=== PATIENT | male | born 1960 | race American Indian/Alaskan Native ===

== ENCOUNTER 2017-01-21 06:07 | Day surgery (SDC) | payer OTHER ==
[2017-01-21] MEDS ORDERED: NACL 0.9% 500 ML 500 ML IV SCH (07:00)
[2017-01-21 07:02] LABS: Basophils % (Auto) 1.2 % (0.0-1.8); Eosinophils % (Auto) 1.8 % (0.0-4.3); Hematocrit 40.2 % (35.5-45.6); Hemoglobin 12.8 gm/dl (11.8-15.2); Mean Corpuscular HGB Conc 32 % (32-34); Mean Corpuscular Hemoglobin 27 pg (28-32); Mean Corpuscular Volume 85 fl (84-94); Platelet Count 162 K/mm3 (140-440); Red Blood Count 4.75 M/mm3 (3.65-5.03); Red Cell Distribution Width 14.1 % (13.2-15.2); White Blood Count 5.4 K/mm3 (4.5-11.0)
[2017-01-21 07:11] LABS: INR 1.07 (0.87-1.13)
[2017-01-21 07:27] LABS: Blood Urea Nitrogen 12 mg/dL (9-20); Carbon Dioxide 26 mmol/L (22-30); Glucose 94 mg/dL (75-100)
[2017-01-21 07:28] LABS: Anion Gap 16 mmol/L; Chloride 102.5 mmol/L (98-107); Potassium 3.7 mmol/L (3.6-5.0); Sodium 141 mmol/L (137-145)
[2017-01-21] MEDS ORDERED: HEPARIN 10,000 UNITS/10 ML ONE (08:26)
[2017-01-21] MEDS ORDERED: XYLOCAINE 2% INFILTRATI ONE (08:26)
[2017-01-21] MEDS ORDERED: HEPARIN/NS 5000 UNIT/500ML(CATH LAB) 1,000 ML IR ONE (08:26)
[2017-01-21] MEDS ORDERED: CALAN ONE (08:26)
[2017-01-21] MEDS ORDERED: NITROGLYCERIN SYRINGE 3 ML ONE (08:27)
[2017-01-21] MEDS ORDERED: VERSED ONE (08:27)
[2017-01-21] MEDS ORDERED: SUBLIMAZE ONE (08:27)
--- NOTE | 2017-01-21 09:40 | Short Stay Summary ---
Short Stay Documentation Date of service: 01/21/17 - History H&P: obtained from office - Allergies and Medications Current Medications: Allergies No Known Allergies Allergy (Verified 01/21/17 06:29) Home Medications Medication Instructions Recorded Confirmed Last Taken Type Aspirin EC [Aspirin Enteric Coated 81 mg PO DAILY 01/21/17 01/21/17 01/21/17 History TAB] Diovan Hct 160-25 mg 1 tab PO DAILY 01/21/17 01/21/17 01/21/17 History Nebivolol (Nf) [Bystolic (Nf)] 5 mg PO DAILY 01/21/17 01/21/17 01/21/17 History 5mg Active Medications Sodium Chloride (Nacl 0.9% 500 Ml) 500 mls @ 50 mls/hr IV DIRECT CASTILLO Stop: 01/21/17 16:59 Last Admin: 01/21/17 06:59 Dose: 50 mls/hr - Physical exam General appearance: no acute distress Integumentary: no rash HEENT: Atraumatic Lungs: Clear to auscultation Breasts: deferred Heart: Regular rate Gastrointestinal: normal Male Genitourinary: deferred Female Genitourinary: deferred Rectal Exam: deferred Extremities: no ischemia Neurological: Normal gait - Brief post op/procedure progress note Date of procedure: 01/21/17 Pre-op diagnosis: Atypical chest pain Post-op diagnosis: same Procedure: LHC, LV gram, aortogram Anesthesia: MAC Findings: Normal coronaries, moderate AR, normal LVEF Surgeon: KENIA PABLO Estimated blood loss: none Pathology: none Condition: stable - Hospital course Hospital course: Uneventful - Disposition Condition at discharge: Good Disposition: DISCHARGED TO HOME OR SELFCARE Short Stay Discharge Plan Activity: advance as tolerated Weight Bearing Status: Weight Bear as Tolerated Diet: low salt Follow up with: JERROD BRIAN MD [Primary Care Provider] - 7 Days
--- NOTE | 2017-01-21 10:51 | Cardiac Catherization Report ---
LEFT HEART CATHETERIZATION INDICATION: Atypical chest pain, persistent. ORDERING PHYSICIAN: Bree Shah MD PROCEDURES PERFORMED: 1. Selective left and right coronary angiography. 2. Left ventriculography. 3. Aortic root angiography. DESCRIPTION OF PROCEDURE: 1. After obtaining written consent, the patient was draped using sterile technique. 2. A 2% lidocaine was injected into the right wrist. 3. A 5-[place] vascular sheath was inserted into the right radial artery. 4. A 5-[place]aur[place] JL3.5 catheter was used to selectively engage the left coronary artery. 5. A 5-[place] JR4 catheter was used to selectively engage the right coronary artery. 6. A 5-[place]aur[place] pigtail catheter was used to perform the left ventriculogram. A 5-[place]aur[place] pigtail catheter was used to perform an aortic root angiogram. 7. No complications occurred during the procedure. 8. Hemostasis was achieved at the end of the procedure using manual pressure. SPECIMEN REMOVED: None. ESTIMATED BLOOD LOSS: Minimal. FINDINGS: HEMODYNAMICS: Aortic pressure is 145/70, left ventricular systolic pressure is 149 mmHg. Left ventricular end diastolic pressure is 15 mmHg. There was no significant gradient noted across the left ventricular outflow tract. CARDIAC STRUCTURES: 1. The left ventricle is normal in size and systolic function with the left ventricular ejection fraction estimated at 60%. 2. The proximal aortic root measures 39.1 mm in diameter, sinotubular junction measured at 38.3 mm in diameter. There was evidence of a moderate aortic regurgitation noted. CORONARY ANATOMY: 1. This is a right dominant circulation. 2. The left main is angiographically normal. 3. The LAD is angiographically normal. 4. The left circumflex artery is angiographically normal. 5. The right coronary artery is angiographically normal. IMPRESSION: 1. Angiographically normal coronary arteries. 2. Normal left ventricular size and systolic function. 3. Evidence of moderate aortic regurgitation. 4. Proximal aortic root measuring 39.1 mm with a sinotubular junction diameter measuring 38.3 mm. RECOMMENDATIONS: Follow up with referring neck pinner and continue current management. JOB# [id number] CASIMIRO/EVELIA
[2017-01-21 13:06] VITALS: BP 158/68
== END 2017-01-21 06:08 | disposition home or self-care (01) ==
LOC: OPU 06:07
PROVIDERS: ATTEND Internal Medicine Cardiovascular Disease
DX: R07.89 Other chest pain (principal); I10 Essential (primary) hypertension; B19.20 Unspecified viral hepatitis C without hepatic coma; F17.210 Nicotine dependence, cigarettes, uncomplicated; Z82.49 Family history of ischemic heart disease and other diseases of the circulatory system
CPT/HCPCS: 36415; 80048; 85025; 85610; 85730; 93005; 93010; 93458; 93567; C1894; J1644; J2250; J3010; J7040; Q9967